=== PATIENT | male | born 1960 | race African-American/Black ===

== ENCOUNTER 2019-02-25 10:40 | Emergency (ER) | payer MEDICAID ==
[~2019-02-25] VITALS: Ht 160 cm; Wt 68.0 kg
[2019-02-25 10:53] VITALS: BP 119/83
[2019-02-25] MEDS ORDERED: VISCOUS LIDOCAINE 2% 15 ML UDC MM STA (11:54)
== END 2019-02-25 12:24 | disposition home or self-care (01) ==
LOC: ER 10:54
DX: K13.79 Other lesions of oral mucosa (principal); I10 Essential (primary) hypertension; E11.9 Type 2 diabetes mellitus without complications
CPT/HCPCS: 99282

== ENCOUNTER 2019-02-28 10:22 | Emergency (ER) | payer MEDICAID ==
[~2019-02-28] VITALS: Ht 165.1 cm; Wt 69.0 kg
[2019-02-28] MEDS ORDERED: KETOROLAC 60MG/2ML VIAL IM ONE (13:30)
[2019-02-28 16:43] VITALS: BP 133/90
== END 2019-02-28 16:43 | disposition home or self-care (01) ==
LOC: ER 10:22
DX: M54.5 Low back pain (principal); E11.9 Type 2 diabetes mellitus without complications; I10 Essential (primary) hypertension; M54.2 Cervicalgia; W01.0XXA Fall on same level from slipping, tripping and stumbling without subsequent striking against object, initial encounter; Y93.89 Activity, other specified; Y92.89 Other specified places as the place of occurrence of the external cause; Y99.8 Other external cause status; Z98.890 Other specified postprocedural states
CPT/HCPCS: 72100; 72125; 96372; 99284; J1885

== ENCOUNTER 2020-12-25 18:55 | Emergency (ER) | payer MEDICAID ==
[~2020-12-25] VITALS: Ht 172.7 cm; Wt 80.0 kg
[2020-12-25 19:35] VITALS: BP 142/86
== END 2020-12-25 19:48 | disposition home or self-care (01) ==
LOC: ER 18:55
DX: F10.129 Alcohol abuse with intoxication, unspecified (principal); Z98.890 Other specified postprocedural states; Y90.9 Presence of alcohol in blood, level not specified
CPT/HCPCS: 99283

== ENCOUNTER 2021-01-05 14:07 | Emergency (ER) | payer MEDICAID ==
[~2021-01-05] VITALS: Ht 165.1 cm; Wt 68.0 kg
[2021-01-05 14:13] VITALS: BP 130/90
== END 2021-01-05 14:42 | disposition home or self-care (01) ==
LOC: ER 14:12
DX: Z00.00 Encounter for general adult medical examination without abnormal findings (principal); E11.9 Type 2 diabetes mellitus without complications; F17.200 Nicotine dependence, unspecified, uncomplicated
CPT/HCPCS: 99283

== ENCOUNTER 2022-01-07 02:54 | Emergency (ER) | payer MEDICAID, OTHER ==
[~2022-01-07] VITALS: Ht 165.1 cm; Wt 59.0 kg
[2022-01-07] MEDS ORDERED: KETOROLAC 15MG/ML VIAL IV ONE (03:30)
[2022-01-07 03:47] VITALS: BP 161/109
== END 2022-01-07 03:53 | disposition left against medical advice (07) ==
LOC: ER 03:03
DX: R07.89 Other chest pain (principal); I11.0 Hypertensive heart disease with heart failure; I50.9 Heart failure, unspecified; G62.9 Polyneuropathy, unspecified; Z71.89 Other specified counseling; I48.91 Unspecified atrial fibrillation; E11.9 Type 2 diabetes mellitus without complications; Z79.899 Other long term (current) drug therapy
CPT/HCPCS: 93005; 99283

== ENCOUNTER 2022-10-31 15:25 | Emergency (ER) | payer OTHER ==
[~2022-10-31] VITALS: Ht 167.6 cm; Wt 78.0 kg
[2022-10-31 15:28] VITALS: BP 108/78
== END 2022-10-31 15:39 | disposition home or self-care (01) ==
LOC: ER 15:25
DX: I16.0 Hypertensive urgency (principal); I11.0 Hypertensive heart disease with heart failure; I50.9 Heart failure, unspecified; I48.91 Unspecified atrial fibrillation; E11.9 Type 2 diabetes mellitus without complications
CPT/HCPCS: 99283

== ENCOUNTER 2023-03-07 00:51 | Emergency (ER) | payer MEDICAID, OTHER ==
[~2023-03-07] VITALS: Ht 172.7 cm; Wt 78.0 kg
[2023-03-07 00:53] VITALS: O2SAT 99
[2023-03-07] MEDS ORDERED: SODIUM CHLORIDE 0.9% 1000ML BAG (SEPSIS BOLUS) IV ONE (01:30)
[2023-03-07] MEDS ORDERED: VANCOMYCIN 1G PREMIX 200 ML IV ONE (01:30)
[2023-03-07] MEDS ORDERED: PIPERACILLIN/TAZ 3.375G PREMIX 50 ML IV ONE (01:30)
[2023-03-07] MEDS ORDERED: MORPHINE SULFATE 4 MG/ML CPJ (NOT FOR IM USE) IV ONE (01:30)
[2023-03-07 02:09] LABS: BASOPHILS % 0.8 % (0.0-2.0); EOSINOPHILS % 2.8 % (0.0-5.0); HEMATOCRIT. 34.5 % (42.0-52.0); HEMOGLOBIN. 11.8 g/dL (14.0-18.0); LYMPHOCYTES % 20.7 % (20.0-50.0); MEAN CORPUSCULAR HEMOGLOBIN 32.5 pg (28.0-32.0); MEAN CORPUSCULAR VOLUME 95.2 fL (80.0-94.0); MEAN PLATELET VOLUME 7.6 fl (7.4-10.4); MONOCYTES % 13.1 % (2.0-8.0); NEUTROPHILS % 62.6 % (40.0-76.0); PLATELET 264 x1000/uL (130-400); RED BLOOD CELL COUNT 3.62 mill/uL (4.7-6.1); RED CELL DISTRIBUTION WIDTH 13.9 % (11.6-14.6)
[2023-03-07 02:11] LABS: CLARITY URINE CLEAR (CLEAR); COLOR URINE YELLOW (YELLOW); KETONES URINE NEGATIVE (NEGATIVE); LEUKOCYTE ESTERASE URINE NEGATIVE (NEGATIVE); NITRITE URINE NEGATIVE (NEGATIVE); OCCULT BLOOD URINE NEGATIVE (NEGATIVE); PH URINE 7.5 (4.5-8.0); PROTEIN URINE NEGATIVE (NEGATIVE); SPECIFIC GRAVITY URINE 1.019 (1.005-1.030)
[2023-03-07 02:18] LABS: CHLORIDE 113 mEq/L (98-107)
[2023-03-07 02:19] LABS: PROTHROMBIN TIME 10.8 sec (9.6-11.0)
[2023-03-07 07:00] VITALS: BP 154/106; PULSE 60; RESP 17; TEMP 98.3
== END 2023-03-07 08:06 | disposition short-term general hospital (02) ==
LOC: ER 00:51
DX: S22.32XA Fracture of one rib, left side, initial encounter for closed fracture (principal); L03.116 Cellulitis of left lower limb; R07.81 Pleurodynia; I48.91 Unspecified atrial fibrillation; I11.0 Hypertensive heart disease with heart failure; I50.9 Heart failure, unspecified; E11.9 Type 2 diabetes mellitus without complications; Z20.822 Contact with and (suspected) exposure to COVID-19; W18.39XA Other fall on same level, initial encounter; Y93.89 Activity, other specified; Y92.89 Other specified places as the place of occurrence of the external cause; Y99.8 Other external cause status
CPT/HCPCS: 99285; 93970; 70450; 96365; 71045; 96366; 96367; 96375; 87426; 80053; 81003; 83605; 85025; 85610; 87040; 87086; 84484; 36415; 84145; 73560; 73590; 73610; 73630; 71250; 93005; J2543; J3370; J2270; J7030; C9803

== ENCOUNTER 2024-05-18 01:14 | Emergency (ER) | payer MEDICAID, OTHER ==
[~2024-05-18] VITALS: Ht 172.7 cm; Wt 80.0 kg
[2024-05-18 01:19] VITALS: O2SAT 100
[2024-05-18] MEDS ORDERED: HYDROCODONE/ACETAMINOPHEN 5/325MG TABLET PO ONE (01:30)
[2024-05-18] MEDS: HYDROCODONE/ACETAMINOPHEN 5/325MG TABLET PO NR (02:59)
[2024-05-18] MEDS: GABAPENTIN 100MG CAPSULE PO ONE (02:59)
[2024-05-18 05:20] VITALS: BP 130/77; PULSE 60; RESP 20; TEMP 37.00296; O2SAT 100
== END 2024-05-18 05:21 ==
LOC: ER 01:14
DX: S09.90XA Unspecified injury of head, initial encounter (principal); I11.0 Hypertensive heart disease with heart failure; I50.9 Heart failure, unspecified; E11.9 Type 2 diabetes mellitus without complications; I48.91 Unspecified atrial fibrillation; W01.0XXA Fall on same level from slipping, tripping and stumbling without subsequent striking against object, initial encounter; Y93.89 Activity, other specified; Y92.89 Other specified places as the place of occurrence of the external cause; Y99.8 Other external cause status
CPT/HCPCS: 99284

== ENCOUNTER 2024-07-29 17:36 | Emergency (ER) | payer MEDICAID ==
[~2024-07-29] VITALS: Ht 167.6 cm; Wt 65.0 kg
[2024-07-29 17:39] VITALS: O2SAT 99
[2024-07-29 20:01] LABS: BASOPHILS % 0.6 % (0.0-2.0); EOSINOPHILS % 1.9 % (0.0-5.0); HEMATOCRIT. 41.5 % (42.0-52.0); HEMOGLOBIN. 13.7 g/dL (14.0-18.0); LYMPHOCYTES % 26.4 % (20.0-50.0); MEAN CORPUSCULAR HEMOGLOBIN 32.4 pg (28.0-32.0); MEAN CORPUSCULAR HGB CONC 33.1 g/dL (31.0-37.0); MEAN PLATELET VOLUME 7.4 fl (7.4-10.4); MONOCYTES % 9.9 % (2.0-8.0); NEUTROPHILS % 61.2 % (40.0-76.0); PLATELET 250 x1000/uL (130-400); RED BLOOD CELL COUNT 4.23 mill/uL (4.7-6.1); RED CELL DISTRIBUTION WIDTH 14.4 % (11.6-14.6); WHITE BLOOD COUNT 6.3 x1000/uL (4.5-11.0)
[2024-07-29 20:08] LABS: CHLORIDE 103 mEq/L (98-107); POTASSIUM 4.8 mEq/L (3.5-5.1); SODIUM 141 mEq/L (136-145)
[2024-07-29 20:09] LABS: CALCIUM 9.6 mg/dL (8.7-10.4); CARBON DIOXIDE 33 mEq/L (21-32)
[2024-07-29 20:14] LABS: CREATININE 1.2 mg/dL (0.6-1.3); GLUCOSE 192 mg/dL (70-105); UREA NITROGEN BLOOD 17 mg/dL (9-23)
[2024-07-29 20:16] LABS: ACETAMINOPHEN < 2 ug/mL (10-30); ALANINE AMINOTRANSFERASE 12 IU/L (10-49); ALBUMIN 4.2 g/dL (3.2-4.8); ASPARTATE AMINOTRANSFERASE 18 IU/L (<34); BILIRUBIN DIRECT 0.1 mg/dL (<=3.0); ETHANOL BLOOD < 10 mg/dL (<10)
[2024-07-29 20:17] LABS: BILIRUBIN TOTAL 0.4 mg/dL (0.1-1.0); PROTEIN TOTAL 6.8 g/dL (6.0-8.3)
[2024-07-30] MEDS: OLANZAPINE 5MG TABLET ODT PO SCH (10:29)
[2024-07-30 16:48] LABS: CLARITY URINE CLEAR (CLEAR); COLOR URINE YELLOW (YELLOW); GLUCOSE URINE NEGATIVE (NEGATIVE); KETONES URINE NEGATIVE (NEGATIVE); LEUKOCYTE ESTERASE URINE NEGATIVE (NEGATIVE); NITRITE URINE NEGATIVE (NEGATIVE); OCCULT BLOOD URINE NEGATIVE (NEGATIVE); PH URINE 7.5 (4.5-8.0); PROTEIN URINE NEGATIVE (NEGATIVE); SPECIFIC GRAVITY URINE 1.023 (1.005-1.030)
[2024-07-30 16:56] LABS: *AMPHETAMINES SCREEN URINE NEGATIVE (NEGATIVE); *BARBITURATES SCREEN URINE NEGATIVE (NEGATIVE); *BENZODIAZEPINES SCREEN URINE NEGATIVE (NEGATIVE); *COCAINE SCREEN URINE PRESUMPTIVE POSITIVE (NEGATIVE); CANNABINOID URINE SCREEN NEGATIVE (NEGATIVE); ECSTASY MDMA SCREEN URINE NEGATIVE (NEGATIVE); METHADONE URINE SCREEN NEGATIVE (NEGATIVE); OPIATES URINE SCREEN NEGATIVE (NEGATIVE); PHENCYCLIDINE URINE SCREEN PRESUMTIVE POSITIVE (NEGATIVE)
[2024-07-30 21:24] VITALS: BP 122/76; PULSE 79; RESP 18; TEMP 36.66960; O2SAT 99
== END 2024-07-30 21:35 | disposition home or self-care (01) ==
LOC: ER 17:36
DX: R45.851 Suicidal ideations (principal); F20.9 Schizophrenia, unspecified; I11.0 Hypertensive heart disease with heart failure; I50.9 Heart failure, unspecified; E11.40 Type 2 diabetes mellitus with diabetic neuropathy, unspecified; Z59.00 Homelessness unspecified
CPT/HCPCS: 36415; 80048; 80076; 80305; 80307; 80320; 80329; 81003; 85025; 99285; G0480